=== PATIENT | male | born 1995 | race Two or more races ===

== ENCOUNTER 2021-03-03 14:37 | Outpatient (CLI) | payer OTHER | END 2021-03-03 14:50 | disposition home or self-care (01) | LOC: SONOGRAMA 14:37 | PROVIDERS: ATTEND Specialist | DX: E03.8 Other specified hypothyroidism (principal); C83.81 Other non-follicular lymphoma, lymph nodes of head, face, and neck ==

== ENCOUNTER 2021-03-13 08:37 | Outpatient (CLI) | payer OTHER | END 2021-03-13 08:42 | disposition home or self-care (01) | LOC: SONOGRAMA 08:37 | PROVIDERS: ATTEND Pathology Anatomic Pathology & Clinical Pathology | DX: R59.0 Localized enlarged lymph nodes (principal) ==